=== PATIENT | male | born 1985 | race Caucasian/White ===

== ENCOUNTER → 2020-04-18 | Outpatient (CLI) | payer MEDICAID | LOC: MHCPAIN 10:19 | DX: M47.812 Spondylosis without myelopathy or radiculopathy, cervical region (principal); M54.2 Cervicalgia; R51 Headache; M54.81 Occipital neuralgia | CPT/HCPCS: G0463 ==

== ENCOUNTER → 2020-06-14 | Outpatient (CLI) | payer MEDICAID | LOC: MHCPAIN 08:28 | DX: M47.812 Spondylosis without myelopathy or radiculopathy, cervical region (principal); M54.18 Radiculopathy, sacral and sacrococcygeal region; R51 Headache; G89.29 Other chronic pain ==